=== PATIENT | male | born 1950 | race Caucasian/White ===

== ENCOUNTER 2022-12-22 06:28 | Day surgery (SDC) | payer OTHER, SELFPAY ==
--- NOTE | 2022-12-21 08:39 | HO.ANESPROP2 ---
Documented by User: Lana Thomas NP 12/21/22 08:40 HPI - Anesthesia Eval Consult details Narrative: 72yo M for Colonoscopy s/p liver transplant 2018 (cirrhosis) [facility] Past Medical History Medical History MRSA (methicillin resistant Staphylococcus aureus) carrier Portal hypertension Cirrhosis of liver Abnormal colonoscopy Hyperlipidemia Surgical History Surgical History Hx of colonoscopy History of total right hip replacement History of liver transplant History of endoscopy Social History Social History Patient Tobacco Use Status: Never used Tobacco Are you DNR?: No Advance Directives: No Advance Directives Information Provided: Yes Recently lost weight without trying: No Nutrition Risks: No Nutritional Risk Meds Allergies Allergy/AdvReac Type Severity Reaction Status Date / Time cyclobenzaprine Allergy Unknown mouth sores Verified 12/19/15 00:00 penicillin V Allergy Unknown rash after Verified 12/19/15 00:00 a while Penicillins [PENICILLINS] Allergy Unknown RASH Verified 12/22/22 07:02 Sulfa (Sulfonamide Allergy Unknown RASH, Verified 12/22/22 07:02 Antibiotics) SWELLING [SULFA (SULFONAMIDE IN THROAT ANTIBIOTICS)] gemfibrozil [From Lopid] Allergy Unknown Verified 12/22/22 07:02 Home Medications Medication Instructions Recorded Confirmed Last Taken Type carvedilol 3.125 mg tablet 3.125 mg PO BID 12/21/22 12/22/22 12/21/22 History meclizine 25 mg tablet 25 mg PO TID PRN dizziness 12/21/22 12/22/22 08/02/22 History tacrolimus 1 mg capsule, 1 mg PO DAILY 12/21/22 12/22/22 12/21/22 History immediate-release Exam Exam Date and Time: December 21, [id number] Assessment and Plan Assessment Anesthesia Assessment: Chart Reviewed Documented by User: Marilyn Juarez MD 12/22/22 07:34 [facility] Past Medical History Medical History MRSA (methicillin resistant Staphylococcus aureus) carrier Portal hypertension Cirrhosis of liver Abnormal colonoscopy Hyperlipidemia Surgical History Surgical History Hx of colonoscopy History of total right hip replacement History of liver transplant History of endoscopy History of Problems with Anesthesia: No Social History Social History Patient Tobacco Use Status: Never used Tobacco Are you DNR?: No Advance Directives: No Advance Directives Information Provided: Yes Recently lost weight without trying: No Nutrition Risks: No Nutritional Risk Meds Allergies Allergy/AdvReac Type Severity Reaction Status Date / Time cyclobenzaprine Allergy Unknown mouth sores Verified 12/19/15 00:00 penicillin V Allergy Unknown rash after Verified 12/19/15 00:00 a while Penicillins [PENICILLINS] Allergy Unknown RASH Verified 12/22/22 07:02 Sulfa (Sulfonamide Allergy Unknown RASH, Verified 12/22/22 07:02 Antibiotics) SWELLING [SULFA (SULFONAMIDE IN THROAT ANTIBIOTICS)] gemfibrozil [From Lopid] Allergy Unknown Verified 12/22/22 07:02 Home Medications Medication Instructions Recorded Confirmed Last Taken Type carvedilol 3.125 mg tablet 3.125 mg PO BID 12/21/22 12/22/22 12/21/22 History meclizine 25 mg tablet 25 mg PO TID PRN dizziness 12/21/22 12/22/22 08/02/22 History tacrolimus 1 mg capsule, 1 mg PO DAILY 12/21/22 12/22/22 12/21/22 History immediate-release Exam Airway Mallampati Class: III TM Dist: >3cm Neck ROM: Full Loose/Missing/Broken Teeth: No Heart: RRR Lungs: CTA Assessment and Plan Assessment Anesthesia Assessment: Anesthesia Plan Discussed Final Anesthetic Review History of Problems with Anesthesia: No NPO: Yes ASA Class: III Final Preanesthetic Review: Meds/Allgs Chart Reviewed, Consent Obtained/Reviewed and Anes Risks/Benef Reviewed Patient Risk: Intermediate Procedure Risk: Low Anesthetic Plan Anesthetic Plan: MAC: Disposition: Standard PACU
[2022-12-22 06:09] VITALS: BMI 34.0
[2022-12-22 06:36] VITALS: BP 179/99; PULSE 56; RESP 18; TEMP 36.6; O2SAT 98
[2022-12-22] MEDS: Lactated Ringers 1,000 ML 100 ML IVCONT (07:02)
[2022-12-22 08:30] VITALS: BP 100/61; PULSE 52; RESP 16; TEMP 36.1; O2SAT 98
--- NOTE | 2022-12-22 08:32 | P.BOP_ITS ---
Brief Operative Note Date of Service: 12/22/22 Pre-op diagnosis: Screening Post-op diagnosis: other (Rectal polyp) Procedure: Colonoscopy to the cecum and TI with bx/removal of polyp Surgeon: Cristo Victor Anesthesia: MAC Was an [employer] used for this Procedure?: No Estimated blood loss (mL): 2.0 Pathology: other (A. Rectal polyp) Condition: stable Disposition: PACU
[2022-12-22 08:45] VITALS: BP 147/83; PULSE 52; RESP 16; TEMP 36.1; O2SAT 97
--- NOTE | 2022-12-22 08:54 | OP_ITS ---
DATE OF SERVICE: 12/22/2022 SURGEON: Cristo Victor MD INDICATIONS: The patient presents for evaluation of colorectal cancer screening and personal history of tubular adenoma of the colon. Full consent has been obtained from him for this, including risks of bleeding and perforation. PREOPERATIVE DIAGNOSIS: POSTOPERATIVE DIAGNOSIS: PROCEDURE PERFORMED: ESTIMATED BLOOD LOSS: COMPLICATIONS: ANESTHESIA: Monitored anesthesia care. ASSISTANTS: SPECIMENS: PREOPERATIVE DIAGNOSES: Colorectal cancer screening and personal history of tubular adenoma of the colon. POSTOPERATIVE DIAGNOSES: Colorectal cancer screening and personal history of tubular adenoma of the colon, small colon polyp, diverticulosis, and internal hemorrhoids. PROCEDURES PERFORMED: Colonoscopy to the cecum and terminal ileum with biopsy and removal of polyp. DESCRIPTION OF PROCEDURE: The patient was placed in the left lateral decubitus position. The digital rectal exam revealed no abnormalities. The Olympus video pediatric colonoscope was entered into the rectum and advanced easily to the cecum. Once in the cecum, I did identify normal-appearing cecal pouch with appendiceal orifice and a normal-appearing ileocecal valve. The terminal ileum was cannulated and appeared normal. The scope was withdrawn back in the colon. The entire cecum and ileocecal valve appeared normal. The scope was then slowly withdrawn assessing all mucosal surfaces carefully. Preparation was excellent. The only polyp I visualized was an approximately 3 or 4 mm rectal polyp, which appeared to be inflammatory in appearance. This was biopsied and completely removed with cold biopsy forceps. I did not visualize any other polyps, colitis, nor angiodysplasia. There was a mild amount of sigmoid diverticulosis. In the rectum, scope was retroflexed visualizing internal hemorrhoids, but no other pathology. The rectal mucosa appeared normal. Scope was straightened and withdrawn from the patient. He tolerated the procedure well and he was returned to recovery area in stable condition. IMPRESSION: 1. Rectal polyp. 2. Diverticulosis. 3. Internal hemorrhoids. PLAN: The results of biopsy will be checked. I would recommend a repeat colonoscopy in 5 years. He will be seen in 1 year for a followup office visit in regard to his previous history of cirrhosis and status post liver transplant. MD JEMAL Corrales/ALEXANDREA / [id number]
== END 2022-12-22 09:39 | disposition home or self-care (01) ==
PROVIDERS: PCP Internal Medicine; Visit Provider Internal Medicine
PROC: 0DJD8ZZ Inspection of Lower Intestinal Tract, Via Natural or Artificial Opening Endoscopic (ICD-10-PCS; CPT 45378; principal; 2022-12-22 07:30)
DX: Z12.11 Encounter for screening for malignant neoplasm of colon (principal); D12.8 Benign neoplasm of rectum; K57.30 Diverticulosis of large intestine without perforation or abscess without bleeding; K64.8 Other hemorrhoids; Z86.010 Personal history of colon polyps; E78.5 Hyperlipidemia, unspecified; K74.60 Unspecified cirrhosis of liver; Z86.14 Personal history of Methicillin resistant Staphylococcus aureus infection; Z79.899 Other long term (current) drug therapy
CPT/HCPCS: 45380; 88305; J2250